=== PATIENT | female | born 1950 | race Caucasian/White ===

== ENCOUNTER → 2023-04-28 13:00 | Outpatient (REF) | payer OTHER, SELFPAY | LOC: HWRAD 13:00 | PROVIDERS: ATTENDING PHYSICIAN Nurse Practitioner | DX: Z87.891 Personal history of nicotine dependence (principal) | CPT/HCPCS: 71271 ==

== ENCOUNTER → 2023-05-05 11:29 | Outpatient (REF) | payer OTHER, SELFPAY | LOC: HWWDC 11:29 | PROVIDERS: ATTENDING PHYSICIAN Nurse Practitioner | DX: Z12.31 Encounter for screening mammogram for malignant neoplasm of breast (principal) | CPT/HCPCS: 77063; 77067 ==

== ENCOUNTER → 2023-09-27 16:26 | Outpatient (REF) | payer OTHER, SELFPAY | LOC: MRI 3T 16:26 | PROVIDERS: ATTENDING PHYSICIAN Internal Medicine Gastroenterology; FAMILY PHYSICIAN Nurse Practitioner | DX: R74.8 Abnormal levels of other serum enzymes (principal) | CPT/HCPCS: 74183; A9575 ==

== ENCOUNTER → 2024-05-11 16:29 | Outpatient (REF) | payer MEDICARE, OTHER, SELFPAY | LOC: RAD 16:29 | DX: M79.89 Other specified soft tissue disorders (principal); R22.41 Localized swelling, mass and lump, right lower limb; R60.0 Localized edema | CPT/HCPCS: 93971 ==

== ENCOUNTER → 2024-08-31 12:55 | Outpatient (REF) | payer MEDICARE, OTHER, SELFPAY | LOC: HWRAD 12:55 | DX: Z87.891 Personal history of nicotine dependence (principal) | CPT/HCPCS: 71271 ==

== ENCOUNTER → 2024-11-16 10:11 | Outpatient (REF) | payer MEDICARE, OTHER, SELFPAY | LOC: HWWDC 10:11 | DX: Z12.31 Encounter for screening mammogram for malignant neoplasm of breast (principal); M85.88 Other specified disorders of bone density and structure, other site | CPT/HCPCS: 77063; 77067; 77080 ==

== ENCOUNTER → 2025-01-26 07:00 | Outpatient (REF) | payer MEDICARE, OTHER, SELFPAY | LOC: HWRCS 07:00 | PROVIDERS: ATTENDING PHYSICIAN Nurse Practitioner | DX: E78.2 Mixed hyperlipidemia (principal); I25.10 Atherosclerotic heart disease of native coronary artery without angina pectoris; R07.89 Other chest pain; R06.02 Shortness of breath | CPT/HCPCS: 78452; 93017; A9500; J2785 ==

== ENCOUNTER → 2025-02-08 07:08 | Outpatient (REF) | payer MEDICARE, OTHER, SELFPAY | LOC: HWRCS 07:08 | PROVIDERS: ATTENDING PHYSICIAN Nurse Practitioner | DX: E78.2 Mixed hyperlipidemia (principal); I25.10 Atherosclerotic heart disease of native coronary artery without angina pectoris; R07.89 Other chest pain; R06.02 Shortness of breath | CPT/HCPCS: 93306 ==

== ENCOUNTER 2025-02-22 06:38 | Day surgery (SDC) | payer MEDICARE, OTHER, SELFPAY | END 2025-02-22 11:09 | disposition home or self-care (01) | LOC: GI 06:38 | PROVIDERS: ATTENDING PHYSICIAN Internal Medicine Gastroenterology | DX: Z12.11 Encounter for screening for malignant neoplasm of colon (principal); Z86.0100 Personal history of colon polyps, unspecified; K64.8 Other hemorrhoids; K57.30 Diverticulosis of large intestine without perforation or abscess without bleeding | CPT/HCPCS: G0105 ==